=== PATIENT | female | born 1945 | race Caucasian/White ===

== ENCOUNTER 2018-06-04 01:50 | Observation (INO) | payer MEDICARE ==
[2018-06-04] MEDS ORDERED: Morphine 4 MG/ML VIAL ONE (02:01)
[2018-06-04 07:41] LABS: Troponin I Less than 0.010 ng/mL (< 0.028)
--- NOTE | 2018-06-04 08:30 | CT ---
CT ANGIOGRAM OF THE CHEST AND ABDOMEN: DATE: 06/04/2018. COMPARISON: None. HISTORY: Chest pain radiating through the back, assess for aneurysm or dissection of the aorta. TECHNIQUE: Axial CT imaging obtained at 2.5 mm intervals from thoracic inlet through aortic bifurcation with IV contrast using CT angiogram protocol. Coronal and sagittal 3D reformatted imaging obtained. FINDINGS: There is no lymphadenopathy in the axillary, hilar, or mediastinal regions. There is prominence of t he pulmonary arterial vasculature which can be seen in the setting of pulmonary arterial hypertension . Clinical correlation is required. There is an oval soft tissue structure measuring up to 1 cm within the superior mediastinum inferior to the left lobe of the thyroid gland measuring 1 cm. This may be on the basis of a mildly prominent lymph node or a parathyroid adenoma. No pleural, pericardial, or mediastinal fluid. No pneumothorax. Prominent right lower lobe granulom a noted on axial image 88. Additional prominent left upper lobe granuloma seen. No suspicious pulmonary parenchymal mass lesion or nodule noted. The thoracic aorta demonstrates mild atherosclerotic calcification at the level of the arch. There i s no evidence for aneurysm or dissection of the thoracic aorta. Review of the osseous structures of the chest demonstrates no acute findings. Age-indeterminate mild superior end plate fractures are noted at T4, T5, and T6, likely remote. The liver and spleen demonstrate no acute findings. Splenic granulomata are noted. The gallbladder is nonvisualized suggesting prior cholecystectomy. There is diffuse atrophy of the p ancreas. The adrenal glands appear grossly unremarkable. There is a small hypodensity in the superolateral aspect of the upper pole right kidney, best seen on axial image 117 and coronal image 87 measuring approximately 8 mm transverse dimension and 1.3 cm AP dimension. This lesion is too small to characterize on this examination and does not definitely delfina t criteria for a cyst. Thus, a followup renal ultrasound is advised on a nonemergent basis. The bowel is not fully imaged on this exam. The pelvis is not included on this study. The imaged bowel demonstrates no acute findings. The celiac axis, superior mesenteric artery, and inferior mesenteric artery are patent as are bilater al renal arteries. There is no evidence for aneurysm or dissection of the abdominal aorta. No retroperitoneal lymphadenopathy. Osseous structures of the abdomen demonstrate multilevel lower l umbar spine facet hypertrophic change with no worrisome lytic or blastic bone lesions noted. IMPRESSION: No evidence for aneurysm or dissection of the thoracic or abdominal aorta. Incidental findings as de tailed above, including a hypodensity within the right kidney for which followup nonemergent renal ul trasound advised. POS: CHRISTA
[2018-06-04] MEDS ORDERED: Ondansetron PF 4 MG/2 ML Vial IVP PRN (09:16)
[2018-06-04] MEDS ORDERED: Acetaminophen 325 MG TAB PO PRN (09:16)
[2018-06-04] MEDS ORDERED: Bisacodyl 5 MG TAB PO PRN (09:16)
[2018-06-04] MEDS ORDERED: HYDROcodone/Acetaminophen 5/325 mg Tablet PO PRN (09:16)
[2018-06-04] MEDS ORDERED: Guaifenesin DM 100-10/5 ML UDCUP PO PRN (09:16)
[2018-06-04] MEDS ORDERED: HYDROcodone/Acetaminophen 10/325 mg Tablet PO PRN (09:16)
[2018-06-04 10:10] LABS: Cardiac Risk 4.5 (Less than 4.5)
[2018-06-04] MEDS ORDERED: ADENOSINE 60 MG/20 ML VIAL ONE (10:19)
[2018-06-04] MEDS ORDERED: ISOVUE-370 76%-LOCM 1 ML ONE (10:54)
[2018-06-04] MEDS ORDERED: Atorvastatin Calcium 40 MG TAB PO SCH (11:15)
[2018-06-04 13:38] VITALS: BP 122/60; TEMP 97.7
[2018-06-04 13:39] VITALS: BMI 27.0
--- NOTE | 2018-06-04 13:39 | NM ---
CARDIAC SPECT: HISTORY: A 73-year-old female with chest pain, asthma, hypertension, and diabetes. TECHNIQUE: A microperfusion scan was performed using the single isotope one day protocol with technetium 99m ses tamibi, and 9 millicuries was injected intravenously for the rest exam, followed by 29 millicuries fo r the stress study. Pharmacologic stress with adenosine was monitored and interpreted by Dr. Issa trammell. FINDINGS: Homogeneous tracer distribution is seen in the myocardial segments on stress and rest images without fixed or reversible defects. GATED SPECT LVEF: 81% WALL MOTION EXAM: Normal. IMPRESSION: Normal myocardial perfusion scan. POS: OFF
[2018-06-04] MEDS ORDERED: Sodium Chloride 0.9% 1,000 ML IV SCH (14:15)
[2018-06-04] MEDS ORDERED: Nitroglycerin 50 MG/250 ML BOT 250 ML IVPB SCH (14:15)
[2018-06-04] MEDS ORDERED: Famotidine 20 MG TAB PO SCH (21:00)
--- NOTE | 2018-06-05 06:10 | SS ---
DATE OF ADMISSION: 06/04/2018 DATE OF DISCHARGE: 06/04/2018 PRIMARY CARE PHYSICIAN: Out of town PCP. CHIEF COMPLAINT: Chest pain. HISTORY OF PRESENT ILLNESS: This is a 73-year-old female with history of diabetes, hypertension, GERD, diabetic neuropathy, who presented to the emergency department for acute onset of chest discomfort that she felt as indigestion this morning, but was radiating to her back and described as burning, lasting hours, associated shortness of breath. She denies diaphoresis, nausea, vomiting, lightheadedness, fever, sputum production. She refers first-time pain, this severe. FAMILY HISTORY: She has family of coronary artery disease. REVIEW OF SYSTEMS: All systems are reviewed and negative except for the ones mentioned above. PAST MEDICAL HISTORY: As mentioned in HPI. PAST SURGICAL HISTORY: Cholecystectomy, appendectomy, hysterectomy, bladder lift. SOCIAL HISTORY: She lives with her in [place]. No tobacco, alcohol, or illicit drugs. No living will, power of commercial real estate attorney, advance directive. She is a full code. HOME MEDICATIONS: Reviewed. ALLERGIES: NO KNOWN DRUG ALLERGIES. FAMILY HISTORY: Significant for CAD. PHYSICAL EXAMINATION: VITAL SIGNS: Blood pressure 122/60, pulse 52, respiration 12, oxygen saturation 95% on room air, temperature 97.7 Fahrenheit. GENERAL: She appears in no distress. She is awake, alert, oriented x3. HEAD AND NECK: Pupils are equal, reactive to light. Extraocular muscles intact. Mucous membranes are moist. NECK: Supple. CARDIOVASCULAR: Rhythm rate regular. No audible murmurs, rubs, or gallops. PULMONARY: Clear to auscultation bilaterally. No wheezes, rhonchi, or crackles. ABDOMEN: Soft, nontender, nondistended, positive bowel sounds. EXTREMITIES: No palpable edema. Pulses are symmetric. Capillary refill is less than 3 seconds. Range of motion is intact. Skin: Normal moist and color. NEUROLOGIC: Cranial nerves 2-12 are grossly intact. Deep tendon reflexes are normoreflexic. LABORATORY DATA: Laboratory abnormalities. Cardiac enzymes are negative. Lipid profile within normal limits. IMAGING: EKG is reviewed. Imaging study reports are reviewed including CTA of the chest. ASSESSMENT AND PLAN: 1. Acute atypical chest pain, resolved. Negative stress test and serial cardiac enzymes. 2. Essential hypertension, currently at goal. 3. Continue home medications. 4. Diabetes mellitus type 2. 5. Continue home medications. 6. Dyslipidemia: Continue gemfibrozil. 7. Asymptomatic bradycardia: Sinus bradycardia. 8. Diabetic neuropathy: Continue gabapentin. 9. Code status: Full code. 10. Core measure: SCDs due to short hospital stay. 11. Disposition: Discharge home. 12. Prognosis: Fair. 13. Clinical status: Stable. 14. Expected length of stay: Observation hours. 15. Total time spent: 40 minutes. HOSPITAL COURSE: I discussed the results with the patient. I explained in detail the 7 considered deadly causes of chest pain that all have been ruled out. She will be followed up with her primary care physician in [place]. Her medications are adequate. DISCHARGE DISPOSITION: Home. DISCHARGE CONDITION: Stable next. DISCHARGE DIET: Diabetic and cardiac and low-sodium diet as tolerated. DISCHARGE ACTIVITY: Increase activity as tolerated. DISCHARGE MEDICATION: See medical reconciliation for details. FOLLOWUP: With primary care physician in 1 or 2 weeks. DISCHARGE INSTRUCTIONS: 1. The patient was instructed to return to the emergency department, if symptoms are worsen. 2. To take your medications as directed, not to miss any appointments. TIME OF DISCHARGE AND PLANNIN minutes. Job ID: [id number]
[2018-06-05] MEDS ORDERED: Atorvastatin Calcium 40 MG TAB PO SCH (09:00)
[2018-06-05] MEDS ORDERED: Aspirin 81 mg Enteric Coated Tablet PO SCH (09:00)
== END 2018-06-04 14:41 | disposition home or self-care (01) ==
LOC: ERS 01:50 → ERHOLD 04:14 → 2SW 13:33
PROVIDERS: ADMIT Hospitalist; ATTEND Hospitalist
DX: R07.89 Other chest pain (principal); E11.40 Type 2 diabetes mellitus with diabetic neuropathy, unspecified; K21.9 Gastro-esophageal reflux disease without esophagitis; I10 Essential (primary) hypertension; E78.5 Hyperlipidemia, unspecified; Z79.82 Long term (current) use of aspirin; Z79.84 Long term (current) use of oral hypoglycemic drugs; Z79.899 Other long term (current) drug therapy
CPT/HCPCS: 71275; 78452; 80061; 84484; 93005; 93017; 96374; 99285; A9500; G0378 ×2; 36415; J0153; J2270; Q9966

== ENCOUNTER 2020-05-11 13:03 | Outpatient (CLI) | payer MEDICARE | END 2020-05-11 13:04 | disposition home or self-care (01) | LOC: BICMAMMO 13:03 | PROVIDERS: ATTEND Family Medicine | DX: Z12.31 Encounter for screening mammogram for malignant neoplasm of breast (principal); Z13.820 Encounter for screening for osteoporosis; M81.0 Age-related osteoporosis without current pathological fracture | CPT/HCPCS: 77063; 77067; 77080 ==

== ENCOUNTER 2021-12-22 23:57 | Inpatient (IN) | payer MEDICARE ==
[2021-12-23 01:37] VITALS: BMI 27.8
[2021-12-23 02:00] LABS: SARS-CoV-2 NAA Rapid Test Not Detected (NotDetected)
[2021-12-23] MEDS ORDERED: Cyclobenzaprine 10 MG TAB PO PRN (02:47)
[2021-12-23] MEDS ORDERED: Ondansetron PF 4 MG/2 ML Vial IVP PRN (02:48)
[2021-12-23] MEDS ORDERED: TETANUS, DIPHTHERIA TOX,ADULT (TDVAX) 0.5 ML VIAL IM ONE (02:48)
[2021-12-23] MEDS ORDERED: Dextrose 5% in Water 1,000 ML IV PRN (02:55)
[2021-12-23] MEDS ORDERED: Dextrose 50% Abboject 50 ML SYRINGE SLOW IVP PRN ×2 (02:55)
[2021-12-23] MEDS: Acetaminophen 500 MG TAB PO SCH ×4 (03:03→21:17)
[2021-12-23] MEDS: traMADol HCl 50 MG TAB PO PRN ×2 (03:04→11:39)
[2021-12-23] MEDS: Morphine 4 MG/ML VIAL SLOW IVP PRN ×4 (03:05→15:36)
[2021-12-23 06:13] LABS: #Basophils 0.1 thou/uL (0.0-0.2); #Eosinphils 0.1 thou/uL (0.0-0.7); #Lymphocytes 2.6 thou/uL (1.20-3.40); #Monocytes 0.9 thou/uL (0.11-0.59); %Basophils 0.5 % (0.0-1.0); %Eosinophils 0.6 % (0.0-10.0); %Monocytes 7.7 % (0.0-10.0); %Neutrophils 69.2 % (42.0-75.0); Hemoglobin 11.2 g/dL (12.0-16.0); Mean Corpuscular HGB CONC 31.5 g/dL (32.0-36.0); Mean Corpuscular Hemoglobin 29.5 pg (27.0-31.0); Mean Corpuscular Volume 93.8 fl (78.0-98.0); Mean Platelet Volume 8.2 fL (7.4-10.4); Platelet Count 247 10x3/uL (130-400); RBC Distribution Width 12.5 % (11.5-14.5); White Blood Cell (WBC) Count 11.6 10x3/uL (4.8-10.8)
[2021-12-23] MEDS: traMADol HCl 50 MG TAB PO SCH ×3 (06:15→18:13)
[2021-12-23 06:22] LABS: Prothrombin Time 13.7 sec (12.0-14.7)
[2021-12-23 06:37] LABS: Anion Gap 13 mmol/L (10-20); BUN (Urea Nitrogen) 16 mg/dL (9.8-20.1); Calc. Creatinine Clearance 63 mL/min (70-130); Calcium 8.5 mg/dL (7.8-10.44); Carbon Dioxide 24 mmol/L (23-31); Chloride 105 mmol/L (98-107); Estimated GFR 70; Glucose 223 mg/dL (83-110); Magnesium 1.4 mg/dL (1.6-2.6); Potassium 4.5 mmol/L (3.5-5.1); Sodium 137 mmol/L (136-145)
[2021-12-23 06:48] LABS: Phosphorus 3.5 mg/dL (2.3-4.7)
[2021-12-23] MEDS ORDERED: Magnesium Sulfate In Water 4 GM in Premix Bag 1 BAG IVPB SCH (07:30)
[2021-12-23] MEDS ORDERED: Famotidine/PF 20 mg/2ml Vial SLOW IVP SCH (09:00)
[2021-12-23] MEDS: Sodium Chloride 0.9% 1,000 ML IV SCH ×2 (09:01→18:11)
[2021-12-23] MEDS: Atorvastatin Calcium 10 MG TAB PO SCH (09:09)
[2021-12-23] MEDS: Polyethylene Glycol 3350 17 GM Packet PO SCH (09:09)
[2021-12-23] MEDS: Amlodipine 5 MG TAB PO SCH (09:09)
[2021-12-23] MEDS: Gabapentin 100 MG CAP PO SCH ×3 (09:09→21:16)
[2021-12-23] MEDS: Senokot S 8.6-50 MG TAB PO SCH ×2 (09:10→21:18)
[2021-12-23] MEDS: Sertraline 100 MG TAB PO SCH (09:10)
[2021-12-23 15:56] LABS: RBC/HPF 0-3 HPF (0-3); Squamous Epithelial 0-3 HPF (0-3)
[2021-12-23 15:57] LABS: Bacteria/HPF 1+ HPF (None Seen)
[2021-12-24] MEDS: traMADol HCl 50 MG TAB PO SCH ×5 (00:09→23:24)
[2021-12-24] MEDS: Acetaminophen 500 MG TAB PO SCH ×4 (03:00→20:17)
[2021-12-24] MEDS: traMADol HCl 50 MG TAB PO PRN (03:01)
[2021-12-24] MEDS: Sodium Chloride 0.9% 1,000 ML IV SCH (03:03)
[2021-12-24 06:05] LABS: #Eosinphils 0.2 thou/uL (0.0-0.7); #Lymphocytes 2.2 thou/uL (1.20-3.40); #Monocytes 1.1 thou/uL (0.11-0.59); #Neutrophils 8.3 thou/uL (1.40-6.50); %Basophils 0.3 % (0.0-1.0); %Eosinophils 1.4 % (0.0-10.0); %Lymphocytes 18.9 % (21.0-51.0); %Neutrophils 70.5 % (42.0-75.0); Hemoglobin 10.5 g/dL (12.0-16.0); Mean Corpuscular HGB CONC 30.2 g/dL (32.0-36.0); Platelet Count 218 10x3/uL (130-400); RBC Distribution Width 12.5 % (11.5-14.5); Red Blood Cell (RBC) Count 3.61 mill/uL (4.20-5.40); White Blood Cell (WBC) Count 11.7 10x3/uL (4.8-10.8)
[2021-12-24 06:27] LABS: Anion Gap 12 mmol/L (10-20); BUN (Urea Nitrogen) 11 mg/dL (9.8-20.1); Calc. Creatinine Clearance 70 mL/min (70-130); Calcium 8.2 mg/dL (7.8-10.44); Carbon Dioxide 21 mmol/L (23-31); Chloride 105 mmol/L (98-107); Estimated GFR 80; Glucose 176 mg/dL (83-110); Potassium 4.5 mmol/L (3.5-5.1); Sodium 133 mmol/L (136-145)
[2021-12-24] MEDS ORDERED: Furosemide 20 MG/2 ML VIAL SLOW IVP SCH (08:00)
[2021-12-24] MEDS: Amlodipine 5 MG TAB PO SCH (08:29)
[2021-12-24] MEDS: Polyethylene Glycol 3350 17 GM Packet PO SCH (08:30)
[2021-12-24] MEDS: Sertraline 100 MG TAB PO SCH (08:30)
[2021-12-24] MEDS: Gabapentin 100 MG CAP PO SCH ×3 (08:30→20:16)
[2021-12-24] MEDS: Atorvastatin Calcium 10 MG TAB PO SCH (08:30)
[2021-12-24] MEDS: Senokot S 8.6-50 MG TAB PO SCH ×2 (08:31→20:16)
[2021-12-24] MEDS ORDERED: Tranexamic Acid 1,000 MG/10 ML VIAL ONE (09:31)
[2021-12-24] MEDS ORDERED: Neomycin-Polymyxin 1 ML AMP ONE (09:31)
[2021-12-24] MEDS ORDERED: Clindamycin/D5W 900 mg/50 ml Premix Bag ONE (09:34)
[2021-12-24] MEDS ORDERED: Ondansetron PF 4 MG/2 ML Vial ONE (09:53)
[2021-12-24] MEDS ORDERED: PROPOFOL 200 MG/20 ML VIAL ONE (09:53)
[2021-12-24] MEDS ORDERED: Rocuronium Bromide 10 MG/ML (10ML VIAL) ONE (09:53)
[2021-12-24] MEDS ORDERED: PHENYLEPHRINE-NS 100 MCG/ML 10 ML SYRINGE ONE (09:53)
[2021-12-24] MEDS ORDERED: fentaNYL PF 100 MCG/2 ML SYRINGE ONE (10:22)
[2021-12-24] MEDS ORDERED: SUGAMMADEX SODIUM 200 MG/2 ML VIAL ONE (10:45)
[2021-12-24] MEDS ORDERED: Ondansetron HCl/PF 4 MG/2 ML Vial IVP PRN (11:06)
[2021-12-24] MEDS ORDERED: Promethazine HCl 25 MG/ML VIAL IVPB PRN (11:06)
[2021-12-24] MEDS ORDERED: Promethazine HCl 25 MG/ML VIAL IM PRN (11:06)
[2021-12-24] MEDS ORDERED: TETANUS, DIPHTHERIA TOX,ADULT (TDVAX) 0.5 ML VIAL IM ONE (11:31)
[2021-12-24] MEDS ORDERED: Morphine 4 MG/ML VIAL SLOW IVP PRN (11:31)
[2021-12-24] MEDS ORDERED: HYDROcodone/Acetaminophen 10/325 mg Tablet PO PRN (11:31)
[2021-12-24] MEDS ORDERED: Communication Order-Pharmacy FS SCH (11:45)
[2021-12-24] MEDS: Clindamycin/D5W 900 MG in Premix Bag 1 BAG IVPB SCH ×2 (14:50→22:18)
[2021-12-24] MEDS: Aspirin 81 mg Enteric Coated Tablet PO SCH (20:16)
[2021-12-25] MEDS: Acetaminophen 500 MG TAB PO SCH ×2 (03:28→08:41)
[2021-12-25] MEDS: traMADol HCl 50 MG TAB PO SCH (05:07)
[2021-12-25 07:37] LABS: #Lymphocytes 0.9 thou/uL (1.20-3.40); #Neutrophils 9.9 thou/uL (1.40-6.50); %Basophils 0.2 % (0.0-1.0); %Eosinophils 0.4 % (0.0-10.0); %Lymphocytes 7.8 % (21.0-51.0); %Monocytes 8.2 % (0.0-10.0); %Neutrophils 83.4 % (42.0-75.0); Hemoglobin 9.8 g/dL (12.0-16.0); Mean Corpuscular HGB CONC 31.1 g/dL (32.0-36.0); Mean Corpuscular Hemoglobin 29.7 pg (27.0-31.0); Mean Corpuscular Volume 95.6 fl (78.0-98.0); Mean Platelet Volume 8.8 fL (7.4-10.4); Platelet Count 195 10x3/uL (130-400); RBC Distribution Width 12.3 % (11.5-14.5); Red Blood Cell (RBC) Count 3.28 mill/uL (4.20-5.40); White Blood Cell (WBC) Count 11.8 10x3/uL (4.8-10.8)
[2021-12-25 07:51] LABS: Anion Gap 14 mmol/L (10-20); BUN (Urea Nitrogen) 11 mg/dL (9.8-20.1); Calc. Creatinine Clearance 66 mL/min (70-130); Calcium 8.4 mg/dL (7.8-10.44); Carbon Dioxide 24 mmol/L (23-31); Chloride 98 mmol/L (98-107); Estimated GFR 75; Glucose 191 mg/dL (83-110); Magnesium 1.5 mg/dL (1.6-2.6); Phosphorus 2.9 mg/dL (2.3-4.7); Potassium 4.4 mmol/L (3.5-5.1); Sodium 132 mmol/L (136-145)
[2021-12-25] MEDS: Aspirin 81 mg Enteric Coated Tablet PO SCH ×2 (08:39→20:24)
[2021-12-25] MEDS: Senokot S 8.6-50 MG TAB PO SCH ×2 (08:39→21:50)
[2021-12-25] MEDS: Sertraline 100 MG TAB PO SCH (08:40)
[2021-12-25] MEDS: Gabapentin 100 MG CAP PO SCH ×3 (08:41→20:24)
[2021-12-25] MEDS: Atorvastatin Calcium 10 MG TAB PO SCH (08:41)
[2021-12-25] MEDS: Amlodipine 5 MG TAB PO SCH (08:41)
[2021-12-25] MEDS: Polyethylene Glycol 3350 17 GM Packet PO SCH ×2 (08:42→09:19)
[2021-12-25] MEDS ORDERED: traMADol HCl 50 MG TAB PO PRN (10:24)
[2021-12-25] MEDS: Acetaminophen/Codeine 30-300mg Tablet PO SCH ×3 (10:53→22:19)
[2021-12-25] MEDS: Insulin Regular 300 UNITS/3 ML VIAL SC PRN (12:18)
[2021-12-25] MEDS ORDERED: Bisacodyl 10 MG SUPP PR PRN (18:10)
[2021-12-25] MEDS ORDERED: Sodium Chloride 0.9% 500 ML IV SCH (18:45)
[2021-12-25] MEDS ORDERED: Morphine 2 MG/ML VIAL SLOW IVP PRN (18:59)
[2021-12-25] MEDS ORDERED: Sodium Chloride 0.9% 250 ML IV SCH (19:00)
[2021-12-25] MEDS ORDERED: Magnesium Sulfate In Water 4 GM in Premix Bag 1 BAG IVPB SCH (19:00)
[2021-12-25] MEDS: Ibuprofen 200 MG TAB PO SCH (20:24)
[2021-12-25] MEDS: Melatonin 3 MG TAB PO SCH (21:50)
[2021-12-26] MEDS: Ibuprofen 200 MG TAB PO SCH ×3 (02:41→22:03)
[2021-12-26] MEDS: Acetaminophen/Codeine 30-300mg Tablet PO SCH ×2 (04:54→09:32)
[2021-12-26 06:12] LABS: #Eosinphils 0.2 thou/uL (0.0-0.7); #Lymphocytes 1.4 thou/uL (1.20-3.40); #Monocytes 0.8 thou/uL (0.11-0.59); #Neutrophils 6.8 thou/uL (1.40-6.50); %Basophils 0.4 % (0.0-1.0); %Eosinophils 1.8 % (0.0-10.0); %Lymphocytes 14.9 % (21.0-51.0); %Monocytes 8.5 % (0.0-10.0); %Neutrophils 74.4 % (42.0-75.0); Hemoglobin 10.1 g/dL (12.0-16.0); Mean Corpuscular HGB CONC 30.4 g/dL (32.0-36.0); Mean Corpuscular Hemoglobin 29.6 pg (27.0-31.0); Mean Corpuscular Volume 97.3 fl (78.0-98.0); Mean Platelet Volume 8.2 fL (7.4-10.4); Platelet Count 201 10x3/uL (130-400); RBC Distribution Width 12.2 % (11.5-14.5); Red Blood Cell (RBC) Count 3.42 mill/uL (4.20-5.40); White Blood Cell (WBC) Count 9.2 10x3/uL (4.8-10.8)
[2021-12-26] MEDS: Insulin Regular 300 UNITS/3 ML VIAL SC PRN ×2 (06:13→12:29)
[2021-12-26 06:40] LABS: Anion Gap 13 mmol/L (10-20); BUN (Urea Nitrogen) 14 mg/dL (9.8-20.1); Calc. Creatinine Clearance 64 mL/min (70-130); Calcium 8.8 mg/dL (7.8-10.44); Carbon Dioxide 25 mmol/L (23-31); Chloride 100 mmol/L (98-107); Estimated GFR 72; Glucose 201 mg/dL (83-110); Magnesium 2.7 mg/dL (1.6-2.6); Phosphorus 3.2 mg/dL (2.3-4.7); Potassium 4.2 mmol/L (3.5-5.1); Sodium 134 mmol/L (136-145)
[2021-12-26] MEDS ORDERED: Ibuprofen 200 MG TAB PO PRN (07:49)
[2021-12-26] MEDS ORDERED: PHOS-NAK 1 PKT PACK PO SCH (08:00)
[2021-12-26] MEDS: Aspirin 81 mg Enteric Coated Tablet PO SCH ×2 (08:38→22:02)
[2021-12-26] MEDS: Gabapentin 100 MG CAP PO SCH ×3 (08:38→22:02)
[2021-12-26] MEDS: Sertraline 100 MG TAB PO SCH (08:38)
[2021-12-26] MEDS: Atorvastatin Calcium 10 MG TAB PO SCH (08:38)
[2021-12-26] MEDS: Amlodipine 5 MG TAB PO SCH (08:39)
[2021-12-26] MEDS: Senokot S 8.6-50 MG TAB PO SCH ×2 (08:39→22:03)
[2021-12-26] MEDS: Polyethylene Glycol 3350 17 GM Packet PO SCH (08:39)
[2021-12-26] MEDS: Acetaminophen 500 MG TAB PO SCH ×3 (10:48→22:03)
[2021-12-26] MEDS: Melatonin 3 MG TAB PO SCH (22:03)
[2021-12-27] MEDS: Insulin Regular 300 UNITS/3 ML VIAL SC PRN ×4 (01:04→18:28)
[2021-12-27] MEDS: Ibuprofen 200 MG TAB PO SCH ×3 (04:59→21:46)
[2021-12-27] MEDS: Acetaminophen 500 MG TAB PO SCH ×4 (04:59→21:45)
[2021-12-27] MEDS: Aspirin 81 mg Enteric Coated Tablet PO SCH ×2 (09:11→20:11)
[2021-12-27] MEDS: Atorvastatin Calcium 10 MG TAB PO SCH (09:11)
[2021-12-27] MEDS: Senokot S 8.6-50 MG TAB PO SCH ×2 (09:12→20:11)
[2021-12-27] MEDS: Amlodipine 5 MG TAB PO SCH (09:12)
[2021-12-27] MEDS: Gabapentin 100 MG CAP PO SCH ×3 (09:13→20:11)
[2021-12-27] MEDS: Sertraline 100 MG TAB PO SCH (09:13)
[2021-12-27] MEDS: Polyethylene Glycol 3350 17 GM Packet PO SCH (09:14)
[2021-12-27] MEDS: Melatonin 3 MG TAB PO SCH (20:12)
[2021-12-28] MEDS: Insulin Regular 300 UNITS/3 ML VIAL SC PRN ×5 (00:27→21:34)
[2021-12-28] MEDS: Acetaminophen 500 MG TAB PO SCH ×4 (05:30→21:32)
[2021-12-28] MEDS: Ibuprofen 200 MG TAB PO SCH ×3 (05:30→21:33)
[2021-12-28] MEDS: Ferrous Sulfate 325 MG TAB PO SCH (08:23)
[2021-12-28] MEDS: Lisinopril 20 MG TAB PO SCH (08:24)
[2021-12-28] MEDS: metFORMIN 500 MG TAB PO SCH ×2 (08:24→17:32)
[2021-12-28] MEDS: Aspirin 81 mg Enteric Coated Tablet PO SCH ×2 (08:24→21:32)
[2021-12-28] MEDS: Amlodipine 5 MG TAB PO SCH (08:24)
[2021-12-28] MEDS: Atorvastatin Calcium 10 MG TAB PO SCH (08:25)
[2021-12-28] MEDS: Gabapentin 100 MG CAP PO SCH ×3 (08:25→21:32)
[2021-12-28] MEDS: Sertraline 100 MG TAB PO SCH (08:25)
[2021-12-28] MEDS: Senokot S 8.6-50 MG TAB PO SCH ×2 (08:27→21:32)
[2021-12-28] MEDS: Polyethylene Glycol 3350 17 GM Packet PO SCH (08:27)
[2021-12-28] MEDS: Melatonin 3 MG TAB PO SCH (21:33)
[2021-12-29] MEDS: Acetaminophen 500 MG TAB PO SCH ×3 (05:41→15:49)
[2021-12-29] MEDS: Ibuprofen 200 MG TAB PO SCH ×2 (05:41→14:51)
[2021-12-29] MEDS: Insulin Regular 300 UNITS/3 ML VIAL SC PRN ×2 (05:49→12:44)
[2021-12-29] MEDS: Aspirin 81 mg Enteric Coated Tablet PO SCH (08:40)
[2021-12-29] MEDS: Ferrous Sulfate 325 MG TAB PO SCH (08:41)
[2021-12-29] MEDS: metFORMIN 500 MG TAB PO SCH (08:41)
[2021-12-29] MEDS: Lisinopril 20 MG TAB PO SCH (08:41)
[2021-12-29] MEDS: Sertraline 100 MG TAB PO SCH (08:41)
[2021-12-29] MEDS: Amlodipine 5 MG TAB PO SCH (08:41)
[2021-12-29] MEDS: Senokot S 8.6-50 MG TAB PO SCH (08:42)
[2021-12-29] MEDS: Atorvastatin Calcium 10 MG TAB PO SCH (08:42)
[2021-12-29] MEDS: Polyethylene Glycol 3350 17 GM Packet PO SCH (08:42)
[2021-12-29] MEDS: Gabapentin 100 MG CAP PO SCH ×2 (08:42→14:51)
[2021-12-29 16:01] VITALS: BP 156/80; TEMP 98.2
== END 2021-12-29 16:20 | disposition swing bed (61) | DRG 522 ==
LOC: SURG A 12-23 00:20
PROVIDERS: ADMIT Surgery; ATTEND Surgery
PROC: 0SR90JA Replacement of Right Hip Joint with Synthetic Substitute, Uncemented, Open Approach (ICD-10-PCS; principal; 2021-12-24)
DX: S72.091A Other fracture of head and neck of right femur, initial encounter for closed fracture (principal); S52.531A Colles' fracture of right radius, initial encounter for closed fracture; K50.90 Crohn's disease, unspecified, without complications; S72.011A Unspecified intracapsular fracture of right femur, initial encounter for closed fracture; I25.10 Atherosclerotic heart disease of native coronary artery without angina pectoris; E11.9 Type 2 diabetes mellitus without complications; I10 Essential (primary) hypertension; E78.5 Hyperlipidemia, unspecified; W17.89XA Other fall from one level to another, initial encounter; E87.5 Hyperkalemia; I65.22 Occlusion and stenosis of left carotid artery; Z79.899 Other long term (current) drug therapy; Z79.82 Long term (current) use of aspirin; Z79.84 Long term (current) use of oral hypoglycemic drugs; Z90.49 Acquired absence of other specified parts of digestive tract; Z85.828 Personal history of other malignant neoplasm of skin
CPT/HCPCS: 36415; 36416; 71045; 80048; 81015; 83735; 84100; 85025; 85610; 87811; 90714; 93005; 93010; 93306; 93880; C1713; C1776; J1815; J1940; J2270; J2405; J2704; J3475; J3490; J7030; J7050; U0002

== ENCOUNTER 2023-11-25 08:09 | Outpatient (CLI) | payer MEDICARE ==
[2023-11-25] MEDS ORDERED: Iopamidol 370 76% 100 ML VIAL ONE (09:48)
== END 2023-11-25 08:10 | disposition home or self-care (01) ==
LOC: CT 08:09
PROVIDERS: ATTEND Physician Assistant Medical
DX: R09.89 Other specified symptoms and signs involving the circulatory and respiratory systems (principal); I65.22 Occlusion and stenosis of left carotid artery
CPT/HCPCS: 36415; 70498; 82565; Q9967

== ENCOUNTER 2024-01-16 10:00 | Inpatient (IN) | payer MEDICARE ==
[2024-01-17] MEDS ORDERED: Heparin 5,000 UNITS/ML VIAL ONE (06:15)
[2024-01-17] MEDS ORDERED: EPINEPHrine 1 MG/ML VIAL ONE (06:15)
[2024-01-17] MEDS ORDERED: Bupivacaine PF 0.5% 30 ML VIAL ONE (06:16)
[2024-01-17] MEDS ORDERED: Lidocaine 1% PF 5 ML VIAL ONE ×2 (06:55→07:21)
[2024-01-17] MEDS ORDERED: CEFAZOLIN 2 GM VIAL ONE (07:16)
[2024-01-17] MEDS ORDERED: fentaNYL 50 mcg/mL 1 mL Vial ONE (07:19)
[2024-01-17] MEDS ORDERED: PROPOFOL 20 ML ONE (07:19)
[2024-01-17] MEDS ORDERED: Rocuronium Bromide 10 MG/ML (10ML VIAL) ONE (07:21)
[2024-01-17] MEDS ORDERED: Phenylephrine 10 MG/ML VIAL ONE (07:22)
[2024-01-17] MEDS ORDERED: PHENYLEPHRINE-NS 100 MCG/ML 10 ML SYRINGE ONE (07:38)
[2024-01-17] MEDS ORDERED: Glycopyrrolate 0.2 MG/ML 5 ML SYRINGE ONE (07:54)
[2024-01-17] MEDS ORDERED: Heparin 10,000 UNITS/ 10 ML VIAL ONE (08:14)
[2024-01-17] MEDS ORDERED: Protamine Sulfate 50 MG/5 ML VIAL ONE (08:33)
[2024-01-17] MEDS ORDERED: Ondansetron PF 4 MG/2 ML Vial ONE (08:33)
[2024-01-17] MEDS ORDERED: SUGAMMADEX SODIUM 200 MG/2 ML VIAL ONE ×2 (08:35→08:45)
[2024-01-17] MEDS ORDERED: hydrALAZINE 20 MG/ML VIAL SLOW IVP PRN (08:55)
[2024-01-17] MEDS ORDERED: Ipratropium/Albuterol 3 ML NEB NEB PRN (08:55)
[2024-01-17] MEDS ORDERED: Nitroglycerin 50 MG/250 ML BOT 250 ML IVPB PRN (08:55)
[2024-01-17] MEDS ORDERED: traMADol HCl 50 MG TAB PO PRN (08:55)
[2024-01-17] MEDS ORDERED: Phenylephrine 40 MG/NS 250 ML 250 ML IVPB PRN (08:55)
[2024-01-17] MEDS ORDERED: Hydrocortisone 1% Cream 30 GM TUBE TOP PRN (08:55)
[2024-01-17] MEDS ORDERED: Promethazine HCl 25 MG/ML VIAL IM PRN (08:55)
[2024-01-17] MEDS ORDERED: fentaNYL 50 mcg/mL 1 mL Vial SLOW IVP PRN (08:55)
[2024-01-17] MEDS ORDERED: Acetaminophen 325 MG TAB PO PRN (08:55)
[2024-01-17] MEDS ORDERED: Ondansetron PF 4 MG/2 ML Vial IVP PRN (08:55)
[2024-01-17] MEDS ORDERED: Albuterol 2.5 MG (3 mL) NEB NEB PRN (09:02)
[2024-01-17] MEDS ORDERED: Dextrose 50% Abboject 50 ML SYRINGE SLOW IVP PRN (09:15)
[2024-01-17] MEDS ORDERED: Dextrose 5% in Water 1,000 ML IV PRN (09:15)
[2024-01-17] MEDS ORDERED: Glucagon 1 MG/ML KIT IM PRN (09:15)
[2024-01-17] MEDS: Sodium Chloride 0.9% 1,000 ML IV SCH (11:00)
[2024-01-17 11:14] VITALS: BMI 25.2
[2024-01-17] MEDS: Ipratropium/Albuterol 3 ML NEB NEB SCH (14:48)
[2024-01-17] MEDS: Gabapentin 100 MG CAP PO SCH (17:06)
[2024-01-17] MEDS: CEFAZOLIN 2 GM in Sodium Chloride 0.9% 100 ML IVPB SCH (17:07)
[2024-01-17] MEDS: DOPamine 400 MG/D5W 250 ML 250 ML ONE (18:37)
[2024-01-17] MEDS: Atropine Sulfate 1 mg/10 ml Syringe ONE (18:37)
[2024-01-17 20:44] VITALS: BP 111/46
[2024-01-17] MEDS: Lisinopril 20 MG TAB PO SCH (20:44)
[2024-01-17] MEDS: Amlodipine 5 MG TAB PO SCH (20:44)
[2024-01-17] MEDS: Hydrochlorothiazide 25 MG TAB PO SCH (20:53)
[2024-01-17] MEDS: Clopidogrel Bisulfate 75 MG TAB PO SCH (21:11)
[2024-01-17] MEDS: Aspirin 81 mg Enteric Coated Tablet PO SCH (21:11)
[2024-01-17] MEDS: Atorvastatin Calcium 10 MG TAB PO SCH (21:11)
[2024-01-17] MEDS: Insulin Glargine 30 UNITS/0.3 ML VIAL SC SCH (21:12)
[2024-01-17] MEDS: Pantoprazole DR 40 MG TAB PO SCH (21:12)
[2024-01-17] MEDS: Sertraline 100 MG TAB PO SCH (21:12)
[2024-01-17] MEDS: Cyanocobalamin (Vitamin B-12) 1,000 MCG TAB PO SCH (21:12)
[2024-01-17] MEDS: Insulin Lispro 100 UNIT/ML 10 ML VIAL SC PRN (23:05)
[2024-01-18] MEDS ORDERED: Oxybutynin ER 5 MG TAB PO SCH (09:00)
[2024-01-18 13:28] VITALS: TEMP 98.4
== END 2024-01-18 11:00 | disposition home or self-care (01) | DRG 36 ==
LOC: SURG A 01-17 05:55 → CCU 01-17 11:01
PROVIDERS: ADMIT Thoracic Surgery (Cardiothoracic Vascular Surgery); ATTEND Thoracic Surgery (Cardiothoracic Vascular Surgery)
PROC: 037L34Z Dilation of Left Internal Carotid Artery with Drug-eluting Intraluminal Device, Percutaneous Approach (ICD-10-PCS; principal; 2024-01-17)
DX: I65.22 Occlusion and stenosis of left carotid artery (principal); Z96.641 Presence of right artificial hip joint; E11.9 Type 2 diabetes mellitus without complications; J45.909 Unspecified asthma, uncomplicated; I10 Essential (primary) hypertension; I25.10 Atherosclerotic heart disease of native coronary artery without angina pectoris; E78.5 Hyperlipidemia, unspecified; M19.90 Unspecified osteoarthritis, unspecified site; E66.9 Obesity, unspecified; Z88.0 Allergy status to penicillin; Z90.710 Acquired absence of both cervix and uterus; Z90.49 Acquired absence of other specified parts of digestive tract; Z79.899 Other long term (current) drug therapy; Z79.4 Long term (current) use of insulin; Z79.02 Long term (current) use of antithrombotics/antiplatelets; Z68.25 Body mass index [BMI] 25.0-25.9, adult
CPT/HCPCS: 36416; 94640; C1769; C1876; C1884; J0171; J0665; J1644; J1815; J2371; J2405; J2704; J2720; J3010; J7030; J7620

== ENCOUNTER 2024-06-27 09:58 | Observation (INO) | payer MEDICARE ==
[2024-06-27 10:34] LABS: #Basophils 0.03 10x3/uL (0.0-0.2); %Basophils 0.4 % (0.0-1.0); %Eosinophils 0.9 % (0.0-10.0); %Lymphocytes 31.2 % (21.0-51.0); %Monocytes 6.7 % (0.0-10.0); %Neutrophils 60.5 % (42.0-75.0); Hematocrit 33.8 % (36.0-47.0); Hemoglobin 10.8 g/dL (12.0-16.0); Mean Corpuscular Hemoglobin 29.8 pg (27.0-31.0); Mean Corpuscular Volume 93.1 fL (78.0-98.0); Mean Platelet Volume 9.7 fL (7.4-10.4); Platelet Count 222 10x3/uL (130-400); RBC Distribution Width 14.1 % (11.5-14.5); Red Blood Cell (RBC) Count 3.63 mill/uL (4.20-5.40)
[2024-06-27] MEDS ORDERED: Iopamidol-370 76% 500 ML MDV (1 ML CHARGE) ONE (10:35)
[2024-06-27 10:59] LABS: ALT (SGPT) 7 U/L (Less than 34); AST (SGOT) 18 U/L (11-34); Albumin 3.4 g/dL (3.1-4.5); Alkaline Phosphatase 116 U/L (40-110); Anion Gap 14 mmol/L (10-20); BUN (Urea Nitrogen) 29 mg/dL (9.8-20.1); Bilirubin, Total 0.2 mg/dL (0.3-1.2); Calc. Creatinine Clearance 0 mL/min (70-130); Calcium 8.2 mg/dL (7.8-10.44); Carbon Dioxide 21 mmol/L (23-31); Chloride 107 mmol/L (98-107); Estimated GFR 43; Globulin 3.5 g/dL (2.4-3.5); Glucose 344 mg/dL (83-110); Potassium 3.9 mmol/L (3.5-5.1); Protein, Total 6.9 g/dL (5.8-8.1); Sodium 138 mmol/L (136-145)
[2024-06-27] MEDS ORDERED: Nitroglycerin 0.4 MG TAB 1 EACH ONE (11:23)
[2024-06-27 11:37] LABS: Lipase 9 U/L (8-78); Magnesium 1.8 mg/dL (1.6-2.6)
[2024-06-27 11:38] LABS: Actual Bicarbonate (HCO3v) 23.2 mEq/L (22-28); Base Excess -1.7 mEq/L (-2.0 to +3.0); Calcium, Ionized (venous) 1.04 mmol/L (1.16-1.32); Chloride (VBG) 104 mmol/L (98-106); Hematocrit-VBG 34 % (36.0-47.0); Hemoglobin (Hb) 11.5 g/dL (11.7-16.1); Potassium (VBG) 3.92 mmol/L (3.70-5.30); Sodium 137 mmol/L (133-146); pH (venous) 7.382 (7.32-7.43)
[2024-06-27 11:42] LABS: Troponin I Less than 0.010 ng/mL (< 0.028)
[2024-06-27] MEDS ORDERED: Dextrose 50% Abboject 50 ML SYRINGE SLOW IVP PRN (14:06)
[2024-06-27] MEDS ORDERED: Nitroglycerin 0.4 MG TAB (25 Tab Bottle) SL PRN (14:06)
[2024-06-27] MEDS ORDERED: Glucagon 1 MG/ML KIT IM PRN (14:06)
[2024-06-27] MEDS ORDERED: Ondansetron PF 4 MG/2 ML Vial IVP PRN (14:06)
[2024-06-27] MEDS ORDERED: traMADol HCl 50 MG TAB PO PRN (14:06)
[2024-06-27] MEDS ORDERED: Dextrose 5% in Water 1,000 ML IV PRN (14:06)
[2024-06-27] MEDS ORDERED: Insulin Lispro 100 UNIT/ML 10 ML VIAL SC PRN (14:06)
[2024-06-27] MEDS ORDERED: Guaifenesin DM 100-10/5 ML UDCUP PO PRN (14:06)
[2024-06-27] MEDS ORDERED: Senokot S 8.6-50 MG TAB PO PRN (14:06)
[2024-06-27] MEDS ORDERED: Ipratropium/Albuterol 3 ML NEB NEB PRN (14:10)
[2024-06-27 14:54] LABS: Troponin I Less than 0.010 ng/mL (< 0.028)
[2024-06-27] MEDS: Gabapentin 100 MG CAP PO SCH (15:44)
[2024-06-27] MEDS: Acetaminophen 325 MG TAB PO PRN (15:44)
[2024-06-27 15:55] VITALS: BMI 26.5
[2024-06-27 19:57] LABS: Troponin I Less than 0.010 ng/mL (< 0.028)
[2024-06-27] MEDS: Atorvastatin Calcium 10 MG TAB PO SCH (21:22)
[2024-06-27] MEDS: Lisinopril 20 MG TAB PO SCH (21:23)
[2024-06-27] MEDS: Sertraline 100 MG TAB PO SCH (21:24)
[2024-06-27] MEDS: Amlodipine 5 MG TAB PO SCH (21:24)
[2024-06-27] MEDS: Insulin Glargine 30 UNITS/0.3 ML VIAL SC SCH (21:31)
[2024-06-27] MEDS: Hydrochlorothiazide 25 MG TAB PO SCH (21:33)
[2024-06-27] MEDS: Pantoprazole 40 MG DR.TAB PO SCH (21:34)
[2024-06-28] MEDS: Benzonatate 100 MG CAP PO PRN (00:35)
[2024-06-28 05:11] LABS: #Basophils 0.04 10x3/uL (0.0-0.2); %Basophils 0.5 % (0.0-1.0); %Eosinophils 1.5 % (0.0-10.0); %Lymphocytes 40.7 % (21.0-51.0); %Monocytes 6.4 % (0.0-10.0); %Neutrophils 50.7 % (42.0-75.0); Hematocrit 33.3 % (36.0-47.0); Hemoglobin 10.6 g/dL (12.0-16.0); Mean Corpuscular HGB CONC 31.8 g/dL (32.0-36.0); Mean Corpuscular Hemoglobin 29.5 pg (27.0-31.0); Mean Corpuscular Volume 92.8 fL (78.0-98.0); Mean Platelet Volume 9.7 fL (7.4-10.4); Platelet Count 227 10x3/uL (130-400); RBC Distribution Width 13.9 % (11.5-14.5); Red Blood Cell (RBC) Count 3.59 mill/uL (4.20-5.40)
[2024-06-28 05:36] LABS: Anion Gap 13 mmol/L (10-20); BUN (Urea Nitrogen) 19 mg/dL (9.8-20.1); Calc. Creatinine Clearance 53 mL/min (70-130); Calcium 8.3 mg/dL (7.8-10.44); Carbon Dioxide 25 mmol/L (23-31); Cardiac Risk 3.3 (Less than 4.5); Chloride 107 mmol/L (98-107); Cholesterol 141 mg/dl (< 200 Desired); Estimated GFR 73; Glucose 140 mg/dL (83-110); HDL Cholesterol 43 mg/dL (>60 Neg Risk); LDL Cholesterol, Calculated 72 mg/dL; Potassium 3.8 mmol/L (3.5-5.1); Sodium 141 mmol/L (136-145); Triglycerides 131 mg/dL (Less than 150)
[2024-06-28 08:37] VITALS: BP 159/69; TEMP 98.2
[2024-06-28] MEDS: Aspirin Chewable 81 MG TAB PO SCH (09:37)
[2024-06-28] MEDS: Enoxaparin 40 MG (0.4 mL) SYRINGE SC SCH (09:37)
[2024-06-28] MEDS: Oxybutynin ER 5 MG TAB PO SCH (09:38)
== END 2024-06-28 12:36 | disposition home or self-care (01) ==
LOC: ERS 09:58 → OBS 13:54
PROVIDERS: ADMIT Internal Medicine; ATTEND Hospitalist
DX: R07.89 Other chest pain (principal); R06.02 Shortness of breath; R09.89 Other specified symptoms and signs involving the circulatory and respiratory systems; I10 Essential (primary) hypertension; E11.9 Type 2 diabetes mellitus without complications; E78.5 Hyperlipidemia, unspecified; Z90.49 Acquired absence of other specified parts of digestive tract; Z90.710 Acquired absence of both cervix and uterus; Z79.82 Long term (current) use of aspirin; Z79.4 Long term (current) use of insulin; Z79.899 Other long term (current) drug therapy
CPT/HCPCS: 71045; 71275; 80048; 80053; 80061; 82805; 82962 ×2; 83690; 83735; 83880; 84484 ×2; 85025 ×2; 87631; 93005; 96372; 99285; G0378 ×3; J1650; Q9967; 36415; 36416; J1815